=== PATIENT | female | born 1955 | race African-American/Black ===

== ENCOUNTER 2018-06-09 21:31 | Emergency (ER) | payer OTHER ==
[2018-06-09] MEDS ORDERED: Ibuprofen 200 MG TAB ONE (21:56)
[2018-06-09 22:04] LABS: #Basophils 0.1 thou/uL (0.0-0.2); #Eosinphils 0.1 thou/uL (0.0-0.7); #Lymphocytes 2.9 thou/uL (1.20-3.40); #Monocytes 0.8 thou/uL (0.11-0.59); #Neutrophils 7.7 thou/uL (1.40-6.50); %Basophils 0.7 % (0.0-1.0); %Eosinophils 0.5 % (0.0-10.0); %Lymphocytes 25.1 % (21.0-51.0); %Monocytes 6.7 % (0.0-10.0); %Neutrophils 67.1 % (42.0-75.0); Hemoglobin 12.5 g/dL (12.0-16.0); Mean Corpuscular HGB CONC 33.4 g/dL (32.0-36.0); Mean Corpuscular Hemoglobin 30.7 pg (27.0-31.0); Mean Corpuscular Volume 91.9 fL (78.0-98.0); Mean Platelet Volume 8.8 fL (7.4-10.4); Platelet Count 238 thou/uL (130-400); RBC Distribution Width 12.7 % (11.5-14.5); Red Blood Cell (RBC) Count 4.07 mill/uL (4.20-5.40); White Blood Cell (WBC) Count 11.5 thou/uL (4.8-10.8)
[2018-06-09 22:13] LABS: Anion Gap 13 mmol/L (10-20); BUN (Urea Nitrogen) 22 mg/dL (9.8-20.1); Calc. Creatinine Clearance 0 mL/min (70-130); Calcium 9.5 mg/dL (7.8-10.44); Carbon Dioxide 25 mmol/L (23-31); Chloride 106 mmol/L (98-107); Estimated GFR-MDRD 86; Glucose 107 mg/dL (80-115); Potassium 3.8 mmol/L (3.5-5.1); Sodium 140 mmol/L (136-145)
--- NOTE | 2018-06-09 22:20 | CT ---
CT OF THE BRAIN WITHOUT CONTRAST: Date: 06-09-[address] was done for evaluation of headache. FINDINGS: The ventricles are normal in size with no shift. No intracranial bleeding, parenchymal mass, stroke, or edema was seen in the brain. There is a rounded 1.7 cm calcified density that arises from the inne r table of the left frontal bone near the vertex of the skull. 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 An osteoma is a possibility as well. Neither are of tremendous concern acutely and should be followe d up over time. The calvarium otherwise appears normal. The visible paranasal sinuses are clear. IMPRESSION: 1. No acute intracranial findings. 2. 1.5 cm calcified mass originating from the inner table of the high left frontal bone. See comments above. intensivist follow up needed, but acute concern does not exist. Findings discussed with Dr. Lee at 2210 on 06-09-18. POS: HOME
[2018-06-09] MEDS ORDERED: Fosphenytoin Sodium 500 mg/10 ml Vial ONE (22:54)
== END 2018-06-10 00:50 | disposition home or self-care (01) ==
LOC: BURERS 21:31
DX: M31.6 Other giant cell arteritis (principal); G50.0 Trigeminal neuralgia; I10 Essential (primary) hypertension; K21.9 Gastro-esophageal reflux disease without esophagitis; E78.5 Hyperlipidemia, unspecified; Z79.899 Other long term (current) drug therapy
CPT/HCPCS: 70450; 80048; 85025; 85652; 96365; Q2009